=== PATIENT | male | born 1995 | race Caucasian/White ===

== ENCOUNTER 2020-01-09 12:12 | Emergency (ER) | payer MEDICAID ==
[~2020-01-09] VITALS: Ht 177.8 cm; Wt 81.6 kg
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
[2020-01-09] MEDS ORDERED: LORAZEPAM INJ 2 MG/ML VIAL IM ONE ×2 (12:30→13:30)
[2020-01-09] MEDS ORDERED: IBUPROFEN 600 MG TABLET PO ONE ×2 (12:30→12:33)
[2020-01-09] MEDS ORDERED: TDAP [DIPH/PERTUSSIS/TET] 0.5 ML VIAL IM ONE ×2 (12:30→12:34)
[2020-01-09] MEDS ORDERED: LORAZEPAM INJ 2 MG/ML VIAL ONE ×2 (12:34→13:42)
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
[2020-01-09 13:54] LABS: BASOPHILS % (AUTO) 0.4 % (0.0-2.0); EOSINOPHILS % (AUTO) 0.7 % (0.0-6.0); HEMATOCRIT 42 % (39-51); HEMOGLOBIN 14.2 g/dL (13.5-17.5); LYMPHOCYTES # (AUTO) 1.8 /CMM (0.8-4.8); LYMPHOCYTES % (AUTO) 16.5 % (20.0-44.0); MEAN CORPUSCULAR HGB CONC 34 g/dl (31.0-36.0); MEAN CORPUSCULAR VOLUME 89 fL (80-96); MONOCYTES # (AUTO) 0.6 /CMM (0.1-1.30); MONOCYTES % (AUTO) 5.1 % (2.0-12.0); NEUTROPHILS # (AUTO) 8.6 /CMM (1.8-8.9); NEUTROPHILS % (AUTO) 77.3 % (43.0-81.0); PLATELET COUNT (AUTO) 328 /CMM (150-450); WHITE BLOOD COUNT (AUTO) 11.2 K/uL (4.3-11.0)
[2020-01-09 14:06] LABS: CARBON DIOXIDE 23 mmol/L (21-32); CHLORIDE 100 mmol/L (98-107); CREATININE 1.1 mg/dL (0.6-1.3); GLUCOSE 154 mg/dL (74-106); POTASSIUM 3.1 mmol/L (3.5-5.1); SODIUM SERUM 137 mmol/L (136-145); UREA NITROGEN, BLOOD 14 mg/dL (7-18)
[2020-01-09 14:11] LABS: ALANINE AMINOTRANSFERASE 27 U/L (12-78); ALBUMIN 4.2 g/dL (3.4-5.0); ALCOHOL, BLOOD < 3 mg/dL (0-0); ALKALINE PHOSPHATASE 81 U/L (46-116); ASPARTATE AMINOTRANSFERASE 18 U/L (15-37); BILIRUBIN,DIRECT 0.1 mg/dL (0.0-0.2); BILIRUBIN,TOTAL 0.3 mg/dL (0.2-1.0)
[2020-01-09 14:12] LABS: ACETAMINOPHEN 0 ug/ml (10-30); SALICYLATE 1.2 mg/dL (2.8-20.0)
--- NOTE | 2020-01-09 16:00 | NUR ---
Patient is resting comfortably in bed with eyes closed. Easily aroused. VSS
[2020-01-09 20:47] LABS: APPEARANCE,URINE Clear (CLEAR); BILIRUBIN,URINE Negative (NEGATIVE); BLOOD, URINE Negative Ery/uL (NEGATIVE); COLOR,URINE Yellow (YELLOW); KETONES,URINE Negative (NEGATIVE); LEUKOCYTE ESTERASE ,URINE Negative (NEGATIVE); NITRITE, URINE Negative (NEGATIVE); PROTEIN,URINE Negative (NEGATIVE); UGLUCOSE Negative (NEGATIVE); UROBILINOGEN,URINE 0.2 EU/dL (0.2)
[2020-01-09] MEDS ORDERED: OLANZAPINE 10 MG VIAL IM ONE ×2 (22:00→22:03)
--- NOTE | 2020-01-10 | NUR ---
pt sleeping, -sob, nad ntoed, vs updated. pending crisis team eval
--- NOTE | 2020-01-10 04:59 | NUR ---
PT IN BED SLEEPING COMFORTABLY. NAD NOTED
--- NOTE | 2020-01-10 06:35 | NUR ---
[facility] AT [facility] FOR EVAL
--- NOTE | 2020-01-10 06:54 | NUR ---
TRIED CALLING THE FAMILY, NO ANSWER
--- NOTE | 2020-01-10 13:09 | NUR ---
PT. VERBALIZED UNDERSTANDING OF AFTERCARE INSTRUCTIONS.Patient discharged to home in stable condition. Written and verbal after care instructions given. Patient verbalizes understanding of instruction.
[2020-01-10 13:11] VITALS: BP 128/70
== END 2020-01-10 13:11 | disposition home or self-care (01) ==
LOC: ER 12:19
DX: S50.11XA Contusion of right forearm, initial encounter (principal); F20.9 Schizophrenia, unspecified; F28 Other psychotic disorder not due to a substance or known physiological condition; M25.521 Pain in right elbow; W25.XXXA Contact with sharp glass, initial encounter; Y93.89 Activity, other specified; Y92.89 Other specified places as the place of occurrence of the external cause; Y99.8 Other external cause status
CPT/HCPCS: 36415; 73070; 73120; 80048; 80076; 80305; 80307; 80329; 81001; 85025; 90471; 90715; 96372 ×2; 99285; A6403; G0480; J2060 ×2; J3490; 81000-TC